=== PATIENT | female | born 1970 | race African-American/Black ===

== ENCOUNTER 2020-02-22 02:26 | Emergency (ER) | payer OTHER ==
[~2020-02-22] VITALS: Ht 160 cm; Wt 79.4 kg
[~2020-02-22 02:26] MED LIST: ALPRAZOLAM 0.0.25 M1; LISINOPRIL; LISINOPRIL2.5 MG; PROMETHAZINE-C120 ML PO; ZPAK PO
[2020-02-22] MEDS ORDERED: OXYBUTYNIN 5 MG5 M2 PO (02:33)
[2020-02-22] MEDS ORDERED: LISINOPRIL2.5 MG PO (02:33)
[2020-02-22] MEDS ORDERED: [UNRECOGNIZED DRUG - OTHER] PO (02:34)
[2020-02-22 03:38] LABS: EOSINOPHILS 0.4 % (0.0-3.0); HEMOGLOBIN 13.5 gm/dL (12.0-15.0); WBC 12.8 thou/uL (4.0-11.0)
[2020-02-22 03:40] LABS: ABSOLUTE NEUTROPHILS 8.9 thou/uL (1.4-8.2); BASOPHILS 0.7 % (0.0-2.0); HEMATOCRIT 39.4 % (37.0-47.0); LYMPHOCYTES 22.4 % (24.0-44.0); MCH 30.6 pg (26.0-34.0); MCHC 34.2 g/dL (28.0-37.0); MCV 89.5 fL (80.0-100.0); MONOCYTES 7.1 % (1.0-8.0); PLATELET COUNT 297 thou/uL (150-400); POLYS 69.4 % (36.0-66.0); RBC 4.41 mil/uL (4.20-5.00); RDW 14.1 % (10.5-14.5)
[2020-02-22 03:47] LABS: CALCIUM 8.8 mg/dL (8.5-10.1); CREATININE 0.9 mg/dL (0.6-1.0); POTASSIUM 3.1 mmol/L (3.5-5.1)
[2020-02-22] MEDS ORDERED: XANAX 0.5 MG0.5 M1 PO (03:56)
[2020-02-22 04:02] VITALS: BP 151/84
--- NOTE | 2020-02-22 08:03 | EKG ---
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1970 Requested By: Roosevelt Talavera Order Number: [id number] MD: Nick Younger Measurements Intervals [place] Rate: 109 P: 50 VT: 172 QRS: -2 QRSD: 81 T: 1 QT: 371 QTc: 500 Interpretive Statements Sinus tachycardia Nonspecific ST segment abnormality Borderline prolonged QT interval No previous ECG available for comparison Electronically Signed On 02-22-2020 8:01:13 CDT by Nick Younger [email or web address] <ELECTRONICALLY SIGNED> By: Nick Younger MD, [facility] 02/22/20 0801 [id number] 2 Nick Younger MD, [facility] /EPI
== END 2020-02-22 04:03 | disposition home or self-care (01) ==
LOC: ER 02:26
PROVIDERS: Emergency Medicine
DX: R00.2 Palpitations (principal); I10 Essential (primary) hypertension; F41.9 Anxiety disorder, unspecified; G47.00 Insomnia, unspecified; F17.200 Nicotine dependence, unspecified, uncomplicated; Z79.899 Other long term (current) drug therapy